=== PATIENT | male | born 1995 | race Caucasian/White ===

== ENCOUNTER 2017-07-27 22:23 | Emergency (ER) | payer SELFPAY ==
[2017-07-27 23:12] VITALS: BP 129/78
--- NOTE | 2017-07-27 23:12 | ER Document Report ---
HPI - HPI Pain Level: 4 - REPRODUCTIVE Reproductive: DENIES: : Past Medical History - Social History Family History: Reviewed & Not Pertinent GI Medical History: Reports: Hx Gastroesophageal Reflux Disease - Immunizations Immunizations up to date: Yes Hx Diphtheria, Pertussis, Tetanus Vaccination: Yes - unknown when Vertical Provider Document - INFECTION CONTROL TRAVEL OUTSIDE OF THE [place] IN LAST 30 DAYS: No
[2017-07-27] MEDS ORDERED: NORMAL SALINE 1000 ML 1,000 ML IV ONE (23:37)
--- NOTE | 2017-07-27 23:46 | ER Document Report ---
ED GI/ - General Chief Complaint: Fall, R side pain Stated Complaint: FALL,ABDOMINAL PAIN,VOMITING BLOOD Time Seen by Provider: 07/27/17 23:12 Mode of Arrival: Ambulatory Information source: Patient Notes: 22-year-old male fell and hit the stairs on his right side of his abdomen Friday morning at 830.. He points to his lower sternal margin and his abdomen for location of pain. He vomited twice yesterday, and spit up blood today. 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 No hematuria. I did see him walk into the room and he was bent over. No history of abdominal surgeries. TRAVEL OUTSIDE OF THE [place] IN LAST 30 DAYS: No - Related Data Allergies/Adverse Reactions: No Known Allergies Allergy (Verified 08/15/15 09:59) Past Medical History - General Information source: Patient - Social History Smoking Status: Current Every Day Smoker Frequency of alcohol use: None Drug Abuse: None Lives with: Family Family History: Reviewed & Not Pertinent GI Medical History: Reports: Hx Gastroesophageal Reflux Disease Surgical Hx: Negative - Immunizations Immunizations up to date: Yes Hx Diphtheria, Pertussis, Tetanus Vaccination: Yes - unknown when Review of Systems - Review of Systems Constitutional: No symptoms reported EENT: No symptoms reported Cardiovascular: No symptoms reported Respiratory: No symptoms reported Gastrointestinal: See HPI Genitourinary: No symptoms reported Male Genitourinary: No symptoms reported Musculoskeletal: No symptoms reported Skin: No symptoms reported Hematologic/Lymphatic: No symptoms reported Neurological/Psychological: No symptoms reported Physical Exam - Vital signs Vitals: Temp Pulse Resp BP Pulse Ox 98.3 F 91 18 129/78 H 97 07/27/17 22:48 07/27/17 22:48 07/27/17 22:48 07/27/17 22:48 07/27/17 22:48 Interpretation: Normal Notes: frowning in pain - General General appearance: Appears well, Alert - HEENT Head: Normocephalic, Atraumatic Eyes: Normal Conjunctiva: Normal Pupils: PERRL Mouth/Lips: Caries - Extensive decay and gingivitis Mucous membranes: Normal Pharynx: Normal - Respiratory Respiratory status: No respiratory distress Chest status: Tender - minimal right sternal margin Breath sounds: Normal Chest palpation: Normal - Cardiovascular Rhythm: Regular Heart sounds: Normal auscultation Murmur: No - Abdominal Inspection: Normal Distension: No distension Bowel sounds: Normal Tenderness: Tender, Guarding - Right upper quadrant to right lower quadrant Organomegaly: No organomegaly. No: Hepatomegaly, Splenomegaly Adult front & back diagram: 1 - tender and guarding - Back Back: Normal, Nontender. No: CVA tenderness - Extremities General upper extremity: Normal inspection, Nontender, Normal color, Normal ROM , Normal temperature General lower extremity: Normal inspection, Nontender, Normal color, Normal ROM , Normal temperature, Normal weight bearing. No: Rhoda's sign - Neurological Neuro grossly intact: Yes Cognition: Normal Orientation: AAOx4 [place] Coma Scale Eye Opening: Spontaneous [place] Coma Scale Verbal: Oriented [place] Coma Scale Motor: Obeys Commands Jarrod Coma Scale Total: 15 Speech: Normal Motor strength normal: LUE, RUE, LLE, RLE Sensory: Normal - Psychological Associated symptoms: Normal affect, Normal mood - Skin Skin Temperature: Warm Skin Moisture: Dry Skin Color: Normal Skin irregularity: negative: Rash Course - Re-evaluation Re-evalutation: 07/28/17 01:11 CBC normal, urinalysis specific gravity 1.060 because of the IV contrast otherwise negative, patient requiring morphine 5 mg IV for pain. CT report pending. 07/28/17 01:28 CT scan is negative according to the radiologist. Chemistry is normal. Treat the patient was Tylenol and Motrin [id number] and he can follow-up if things get worse but he is reassured that there is nothing on the CT scan and that labs are normal. He states he does not need a work note. States he feels better and was about to doze off asleep. 07/28/17 01:30 - Vital Signs Vital signs: Temp Pulse Resp BP Pulse Ox 98.3 F 91 18 129/78 H 97 07/27/17 22:48 07/27/17 22:48 07/27/17 22:48 07/27/17 22:48 07/27/17 22:48 - Laboratory Result Diagrams: 07/28/17 00:20 07/28/17 00:20 Laboratory results interpreted by me: 07/28/17 07/28/17 00:20 00:50 Glucose 123 H Urine Urobilinogen 2.0 H Discharge - Discharge Clinical Impression: right side abdominal contusion, Abdominal pain Condition: Good Disposition: HOME, SELF-CARE Instructions: Acetaminophen, Use of [id number] Ibuprofen ([facility]), Warm Packs ([facility]), Abdominal Pain ([facility]) Additional Instructions: warm compress over the counter tylenol and motrin for pain return to the ER if worsening symptoms. Forms: Return to Work
[2017-07-28 00:47] LABS: ABSOLUTE EOSINOPHILS # (AUTO) 0.2 10^3/uL (0.0-0.6); ABSOLUTE LYMPHOCYTES (AUTO) 3.3 10^3/uL (0.5-4.7); ABSOLUTE NEUT (AUTO) 5.9 10^3/uL (1.7-8.2); BASOPHILS % (AUTO) 0.4 % (0-2); EOSINOPHILS % (AUTO) 1.6 % (0-6); HEMATOCRIT 41.4 % (37.9-51.0); LYMPHOCYTES % (AUTO) 31.6 % (13-45); MEAN CORPUSCULAR HEMOGLOBIN 29.6 pg (27.0-33.4); MEAN CORPUSCULAR HGB CONC 33.8 g/dL (32.0-36.0); MEAN CORPUSCULAR VOLUME 88 fl (80-97); MONOCYTES % (AUTO) 9.9 % (3-13); PLATELET COUNT 279 10^3/uL (150-450); RED BLOOD COUNT 4.73 10^6/uL (4.35-5.55); RED CELL DISTRIBUTION WIDTH 13.1 % (11.5-14.0); SEGMENTED NEUTROPHILS % (AUTO) 56.5 % (42-78); TOTAL CELLS COUNTED % (AUTO) 100 %; WHITE BLOOD COUNT 10.4 10^3/uL (4.0-10.5)
[2017-07-28] MEDS ORDERED: MORPHINE SULFATE 10 MG/ML INJ IV ONE (00:53)
[2017-07-28 01:10] LABS: APPEARANCE,URINE CLEAR; BILIRUBIN,URINE NEGATIVE (NEGATIVE); COLOR,URINE YELLOW; GLUCOSE, URINE NEGATIVE (NEGATIVE); KETONES,URINE NEGATIVE (NEGATIVE); LEUKOCYTE ESTERASE,URINE NEGATIVE (NEGATIVE); NITRITE,URINE NEGATIVE (NEGATIVE); PROTEIN,URINE NEGATIVE (NEGATIVE); URINE SPECIFIC GRAVITY > 1.060
[2017-07-28 01:11] LABS: ALANINE AMINOTRANSFERASE 49 U/L (21-72); ALBUMIN 4.5 g/dL (3.5-5.0); ALKALINE PHOSPHATASE 68 U/L (38-126); ANION GAP 16 (5-19); ASPARTATE AMINO TRANSFERASE 41 U/L (17-59); BILIRUBIN,DIRECT 0.2 mg/dL (0.0-0.4); BILIRUBIN,TOTAL 0.7 mg/dL (0.2-1.3); BLOOD UREA NITROGEN 14 mg/dL (7-20); CALCIUM 9.8 mg/dL (8.4-10.2); CARBON DIOXIDE 25 mmol/L (22-30); CHLORIDE 99 mmol/L (98-107); GLUCOSE 123 mg/dL (75-110); POTASSIUM 3.6 mmol/L (3.6-5.0); SODIUM 139.6 mmol/L (137-145); TOTAL PROTEIN 7.3 g/dL (6.3-8.2)
--- NOTE | 2017-07-28 01:21 | RADIOLOGY REPORT (SQ) ---
CT abdomen and pelvis with contrast on 07/28/2017 CLINICAL INDICATION: Fell and hit stairs, right-sided abdominal guarding, right upper quadrant pain TECHNIQUE: Multiple axial images are obtained throughout the abdomen and pelvis following the administration of IV contrast. This study was performed with techniques to keep radiation doses as low as reasonably achievable, (ALARA). Total DLP is 816.68 mGy*cm. COMPARISON: None FINDINGS: Abdomen: The lung bases are clear. The solid abdominal organs are unremarkable. There is no abdominal adenopathy. There is no free fluid or free air within the abdomen. The abdominal portion of the GI tract is unremarkable. Pelvis: There is no free fluid in the pelvis. There is no pelvic adenopathy. The pelvic portion of the GI tract including the appendix is unremarkable. No bony abnormality is noted. IMPRESSION: No acute abnormality.
== END 2017-07-28 01:58 | disposition home or self-care (01) ==
LOC: ER 22:23
DX: S30.1XXA Contusion of abdominal wall, initial encounter (principal); W10.9XXA Fall (on) (from) unspecified stairs and steps, initial encounter; F17.200 Nicotine dependence, unspecified, uncomplicated
CPT/HCPCS: 99284; 96361; 96374; 36415; 85025; 80053; 81001; 74177; J2270; J7030

== ENCOUNTER 2019-06-08 10:57 | Emergency (ER) | payer MEDICAID ==
[2019-06-08] MEDS ORDERED: LIDOCAINE 1% INJ-PF (10 MG/ML) 30 ML SDV INJ ONE (11:07)
--- NOTE | 2019-06-08 11:12 | ER Document Report ---
HPI - HPI Patient complains to provider of: Left index finger laceration Time Seen by Provider: 06/08/19 11:03 Onset: Just prior to arrival Onset/Duration: Sudden Quality of pain: Achy Context: This 24-year-old male presents emergency department with laceration to his left index finger. Reports he was popping a screen out with a knife and cut himself. He reports a knife was brand-new he just got it last night. Reports his tetanus is up-to-date. Denies other symptoms such as fever vomiting diarrhea. Denies numbness to the finger. Has full range of motion. Associated Symptoms: None Exacerbated by: Denies Relieved by: Denies Similar symptoms previously: No Recently seen / treated by doctor: No - REPRODUCTIVE Reproductive: DENIES: : Past Medical History - General Information source: Patient - Social History Smoking Status: Current Every Day Smoker Cigarette use (# per day): Yes Frequency of alcohol use: None Drug Abuse: None Family History: Reviewed & Not Pertinent Renal/ Medical History: Denies: Hx Peritoneal Dialysis GI Medical History: Reports: Hx Gastroesophageal Reflux Disease Surgical Hx: Negative - Immunizations Immunizations up to date: Yes Hx Diphtheria, Pertussis, Tetanus Vaccination: Yes - unknown when Vertical Provider Document - CONSTITUTIONAL Agree With Documented VS: Yes Exam Limitations: No Limitations General Appearance: WD/WN, No Apparent Distress - INFECTION CONTROL TRAVEL OUTSIDE OF THE [place] IN LAST 30 DAYS: No - HEENT HEENT: Atraumatic, Normocephalic - NECK Neck: Supple - RESPIRATORY Respiratory: No Respiratory Distress - CARDIOVASCULAR Cardiovascular: Regular Rate - MUSCULOSKELETAL/EXTREMETIES Musculoskeletal/Extremeties: MAEW, FROM, Tender - NEURO Level of Consciousness: Awake, Alert, Appropriate Motor/Sensory: No Motor Deficit - DERM Integumentary: Warm, Dry, Laceration - 1 cm laceration to the lateral left index finger slight bleeding noted cap refill less than 2 seconds has full range of motion flexes and extend finger without problems. Course - Re-evaluation Re-evalutation: 06/08/19 11:43 Finger X-Ray 06/08/19 11:07 IMPRESSION: Bandage material obscures fine details of the 2nd digit. No evidence of acute bony abnormality or radiopaque foreign body. 06/08/19 12:16 24-year-old male presents with laceration left lateral index finger cut with a brand-new knife while he was opening a screen. He reports his tetanus is up-to-date. No tendon injury patient can flex extend the finger without problems denies numbness tingling. Cap refill less than 2 seconds. X-ray negative. Laceration closed with 4-0 nylon x4. Splint placed to protect patient's finger. He was instructed on signs and symptoms of infection. He was instructed to return the emergency department within 14 days for suture removal. He verbalized understanding to all instructions. Dictation of this chart was performed using voice recognition software; therefore, there may be some unintended grammatical errors. - Vital Signs Vital signs: Temp Pulse Resp BP Pulse Ox 98.0 F 98 18 128/70 H 100 06/08/19 11:02 06/08/19 11:02 06/08/19 11:02 06/08/19 11:02 06/08/19 11:02 - Diagnostic Test Radiology reviewed: Image reviewed, Reports reviewed Procedures - Immobilization Left 2nd digit Immobilizer type: Finger splint (Static) Performed by: PCT Post-Proc Neuro Vasc Exam: Unchanged from pre-exam - Laceration/Wound Repair Left 2nd digit Wound length (cm): 1 Wound's Depth, Shape: Superficial Laceration pre-procedure: Shur-Clens applied Anesthetic type: 1% Lidocaine Volume Anesthetic (mLs): 2 Wound explored: Clean Irrigated w/ Saline (mLs): 500 Wound Repaired With: Sutures Suture Size/Type: 4:0, Nylon Number of Sutures: 4 Hands front picture: 1 - 1 cm irregular laceration superficial to left lateral index finger repaired with 4 sutures, patient tolerated procedure well Discharge - Discharge Clinical Impression: Finger laceration Qualifiers: Encounter type: initial encounter Finger: index finger Damage to nail status: without damage Foreign body presence: without foreign body Laterality: left Qualified Code(s): S61.211A - Laceration without foreign body of left index finger without damage to nail, initial encounter Condition: Stable Disposition: HOME, SELF-CARE Instructions: Laceration Care ([facility]), Soap Cleansing ([facility]), Temporary Splint ([facility]) Additional Instructions: *You have been treated for a finger laceration *Monitor your finger for signs of infection such as increasing pain, redness, swelling, warmth *Keep your finger clean, wear splint to protect your finger *Take Tylenol Motrin for pain *Follow up here in 10 to 14 days for suture removal *Return to ED earlier for signs of infection, worsening condition, changes, needs Monitor your blood pressure. Your blood pressure was elevated today. This may be because you were anxious, in pain or because you need medication. It is important to follow up with your primary care provider for full evaluation. Forms: Elevated Blood Pressure
--- NOTE | 2019-06-08 11:24 | RADIOLOGY REPORT (SQ) ---
EXAM DESCRIPTION: FINGER LEFT COMPLETED DATE/TIME: 06/08/2019 11:14 am REASON FOR STUDY: laceration COMPARISON: None. NUMBER OF VIEWS: Three views. TECHNIQUE: AP, lateral, and oblique images acquired of the left second finger. LIMITATIONS: Bandage material obscures fine detail of the 2nd digit. FINDINGS: MINERALIZATION: Normal. BONES: No acute fracture or dislocation. No worrisome bone lesions. SOFT TISSUES: No soft tissue swelling. No foreign body. OTHER: Bandage material overlies 2nd digit. IMPRESSION: Bandage material obscures fine details of the 2nd digit. No evidence of acute bony abnormality or radiopaque foreign body. TECHNICAL DOCUMENTATION: JOB ID: [id number] [employer]- All Rights Reserved Reading location - IP/workstation name: [email or web address]
[2019-06-08 12:27] VITALS: BP 127/64
== END 2019-06-08 12:27 | disposition home or self-care (01) ==
LOC: ER 10:57
DX: S61.211A Laceration without foreign body of left index finger without damage to nail, initial encounter (principal); W26.0XXA Contact with knife, initial encounter; Y93.89 Activity, other specified; F17.210 Nicotine dependence, cigarettes, uncomplicated
CPT/HCPCS: 73140; 12001; J3490; 99283